=== PATIENT | female | born 1990 | race Caucasian/White ===

== ENCOUNTER 2017-06-07 09:59 | Emergency (ER) | payer SELFPAY ==
[2017-06-07] MEDS ORDERED: ONDANSETRON HCL INJ/PF 4 MG/2 ML SDV IV ONE (10:16)
[2017-06-07] MEDS ORDERED: NORMAL SALINE 1000 ML 1,000 ML IV ONE ×2 (10:16→11:57)
--- NOTE | 2017-06-07 10:18 | ER Document Report ---
ED Medical Screen (RME) - General Chief Complaint: Nausea/Vomiting Stated Complaint: VOMITING Time Seen by Provider: 06/07/17 10:15 Mode of Arrival: Ambulatory Information source: Patient, Friend TRAVEL OUTSIDE OF THE [place] IN LAST 30 DAYS: No - HPI Patient complains to provider of: vomiting Onset: Other - pt recently had a positive HPT with onset of vomiting times 10 starting last pm and continuing into this am - Related Data Allergies/Adverse Reactions: No Known Allergies Allergy (Unverified 06/07/17 10:04) Past Medical History Renal/ Medical History: Denies: Hx Peritoneal Dialysis Physical Exam - Vital signs Vitals: Temp Pulse Resp BP Pulse Ox 98.7 F 106 H 18 120/81 99 06/07/17 10:04 06/07/17 10:04 06/07/17 10:04 06/07/17 10:04 06/07/17 10:04 Course - Vital Signs Vital signs: Temp Pulse Resp BP Pulse Ox 98.7 F 106 H 18 120/81 99 06/07/17 10:04 06/07/17 10:04 06/07/17 10:04 06/07/17 10:04 06/07/17 10:04
[2017-06-07] MEDS ORDERED: FAMOTIDINE 20 MG TABLET PO ONE (10:53)
[2017-06-07 10:55] LABS: ABSOLUTE LYMPHOCYTES (AUTO) 1.5 10^3/uL (0.5-4.7); ABSOLUTE MONOCYTES (AUTO) 0.8 10^3/uL (0.1-1.4); ABSOLUTE NEUT (AUTO) 8.7 10^3/uL (1.7-8.2); BASOPHILS % (AUTO) 0.4 % (0-2); EOSINOPHILS % (AUTO) 0.1 % (0-6); HEMATOCRIT 43.5 % (36.0-47.0); HEMOGLOBIN 14.6 g/dL (12.0-15.5); HGB HCT DIFFERENCE 0.3; LYMPHOCYTES % (AUTO) 13.4 % (13-45); MEAN CORPUSCULAR HEMOGLOBIN 32.1 pg (27.0-33.4); MEAN CORPUSCULAR HGB CONC 33.4 g/dL (32.0-36.0); MEAN CORPUSCULAR VOLUME 96 fl (80-97); RED BLOOD COUNT 4.53 10^6/uL (3.72-5.28); RED CELL DISTRIBUTION WIDTH 12.8 % (11.5-14.0); SEGMENTED NEUTROPHILS % (AUTO) 79.1 % (42-78); WHITE BLOOD COUNT 11.1 10^3/uL (4.0-10.5)
--- NOTE | 2017-06-07 11:00 | ER Document Report ---
ED General - General Chief Complaint: Nausea/Vomiting Stated Complaint: VOMITING Time Seen by Provider: 06/07/17 10:15 Mode of Arrival: Ambulatory TRAVEL OUTSIDE OF THE [place] IN LAST 30 DAYS: No - HPI Notes: Patient is an approx 5week 26yo female with one miscarriage who presents to the ED c/o n/v since last evening. Pt states that she does have a h /o GERD and has not been taking her pepcid. She is scheduled to meet with the health department on Friday. Pt states that she cannot keep any fluids/solids down and has been vomiting about 10 times so far. She is still urinating normally and having normal BM's otherwise. Denies any drug allergies. Denies any other significant PMH. Denies any headache, fever, neck pain, URI, sore throat, chest pain, palpitations, syncope, cough, shortness of breath, wheeze, dyspnea, abdominal pain, diarrhea, pelvic pain/cramping, vaginal discharge/ bleeding/odor, urinary retention, dysuria, hematuria, or rash. - Related Data Allergies/Adverse Reactions: No Known Allergies Allergy (Unverified 06/07/17 10:04) Past Medical History - General Information source: Patient, Friend - Social History Smoking Status: Former Smoker Chew tobacco use (# tins/day): No Frequency of alcohol use: None Drug Abuse: Marijuana Family History: Reviewed & Not Pertinent Renal/ Medical History: Denies: Hx Peritoneal Dialysis GI Medical History: Reports: Hx Gastroesophageal Reflux Disease Review of Systems - Review of Systems Notes: REVIEW OF SYSTEMS: CONSTITUTIONAL : Denies fever, chills, or sweats. Denies recent illness. EENT: Denies eye, ear, throat, or mouth pain or symptoms. Denies nasal or sinus congestion or discharge. Denies throat, tongue, or mouth swelling or difficulty swallowing. CARDIOVASCULAR: Denies chest pain. Denies palpitations or racing or irregular heart beat. Denies ankle edema. RESPIRATORY: Denies cough, cold, or chest congestion. Denies shortness of breath, difficulty breathing, or wheezing. GASTROINTESTINAL: see hpi. Denies abdominal pain or distention. Denies diarrhea. Denies blood in vomitus, stools, or per rectum. Denies black, tarry stools. Denies constipation. GENITOURINARY: Denies difficulty urinating, painful urination, burning, frequency, blood in urine, or discharge. FEMALE GENITOURINARY: Denies vaginal bleeding, heavy or abnormal periods, irregular periods. Denies vaginal discharge or odor. MUSCULOSKELETAL: Denies back or neck pain or stiffness. Denies joint pain or swelling. SKIN: Denies rash, lesions or sores. NEUROLOGICAL: Denies confusion or altered mental status. Denies passing out or loss of consciousness. Denies dizziness or lightheadedness. Denies headache. Denies weakness or paralysis or loss of use of either side. Denies problems with gait or speech. Denies sensory loss, numbness, or tingling. Denies seizures. PSYCHIATRIC: Denies anxiety or stress. Denies depression, suicidal ideation, or homicidal ideation. ALL OTHER SYSTEMS REVIEWED AND NEGATIVE. Dictation was performed using [employer] voice recognition software Physical Exam - Vital signs Vitals: Temp Pulse Resp BP Pulse Ox 98.7 F 106 H 18 120/81 99 06/07/17 10:04 06/07/17 10:04 06/07/17 10:04 06/07/17 10:06/07/17 10:04 Notes: PHYSICAL EXAMINATION: GENERAL: Well-appearing, well-nourished and in no acute distress. HEAD: Atraumatic, normocephalic. EYES: Pupils equal round and reactive to light, extraocular movements intact, sclera anicteric, conjunctiva are normal. ENT: Nares patent and without discharge. oropharynx clear without exudates. No tonsilar hypertrophy or erythema. Moist mucous membranes. No sinus tenderness. NECK: Normal range of motion, supple without lymphadenopathy. No rigidity/ meningismus. LUNGS: Breath sounds clear to auscultation bilaterally and equal. No wheezes rales or rhonchi. HEART: Regular rate and rhythm without murmurs, rubs, gallops. ABDOMEN: Soft, nontender, nondistended abdomen. No guarding, no rebound. No masses appreciated. Normal bowel sounds present. No CVA tenderness bilaterally. No pulsatile mass or rigidity. Extremities: No cyanosis, clubbing, or edema b/l. Peripheral pulses 2+. Capillary refill less than 3 seconds. NEUROLOGICAL: Cranial nerves grossly intact. Normal speech, normal gait. Normal sensory, motor exams PSYCH: Normal mood, normal affect. SKIN: Warm, Dry, normal turgor, no rashes or lesions noted. Course - Re-evaluation Re-evalutation: 06/07/17 12:33 Patient is an afebrile, well-hydrated, 26-year-old female who presents to the ED with nausea/vomiting w/o abd pain & possible UTI. Urine dip showed leuks and 10 WBC's. Pt does not seem to be symptomatic at this time, but I will tentatively cover her with Keflex while awaiting a UC. If the UC is negative then she may d/c the medication. I am covering her due to her being , otherwise, I would wait for the UC prior to starting antibiotics. Pt has not had any pelvic cramping or vaginal symptoms. No other imaging warranted at this time. Low suspicion/risk for acute appendicitis, bowel obstruction, acute cholecystitis, acute cholangitis, perforated diverticulitis, incarcerated hernia , pancreatitis, perforated ulcer, peritonitis, sepsis, pelvic inflammatory disease, ectopic , tubo-ovarian abscess, ovarian torsion, or other systemic emergent condition at this time. Patient is aware that her condition can change from initial presentation and she needs to monitor symptoms closely and seek medical attention if any acute changes. 2L NS given today along with zofran and pepcid. Pt is feeling much better at this time. I will send her home with a Rx for zofran and pepcid (cat. B). Conservative measures otherwise for symptoms. Recheck with OBGYN in 1-2 days (keep consult with health department). Recheck with your PCM in 2-3 days. Return to the ED with any worsening/concerning symptoms otherwise as reviewed in discharge. Patient is in agreement. - Vital Signs Vital signs: Temp Pulse Resp BP Pulse Ox 98.7 F 106 H 18 120/81 99 06/07/17 10:04 06/07/17 10:04 06/07/17 10:04 06/07/17 10:04 06/07/17 10:04 - Laboratory Result Diagrams: 06/07/17 10:30 06/07/17 10:30 Laboratory results interpreted by me: 06/07/17 06/07/17 06/07/17 10:30 10:30 10:30 WBC 11.1 H Seg Neutrophils % 79.1 H Absolute Neutrophils 8.7 H Calcium 10.6 H Total Protein 8.4 H Albumin 5.4 H Urine Protein 30 H Urine Glucose (UA) 50 H Urine Ketones 80 H Ur Leukocyte Esterase MODERATE H Urine Ascorbic Acid 40 H Urine HCG, Qual POSITIVE H Discharge - Discharge Clinical Impression: Nausea & vomiting Qualifiers: Vomiting type: unspecified Vomiting Intractability: non-intractable Qualified Code(s): R11.2 - Nausea with vomiting, unspecified UTI (urinary tract infection) Qualifiers: Urinary tract infection type: site unspecified Hematuria presence: without hematuria Qualified Code(s): N39.0 - Urinary tract infection, site not specified Condition: Stable Disposition: HOME, SELF-CARE Instructions: Antinausea Medication ([facility]), Cephalexin ([facility]), Intravenous (IV) Fluids ([facility]) Additional Instructions: Maintain adequate fluid and food intake Take Zofran and Pepcid as needed Take Keflex as directed and call in 2 days to find out the results of your urine culture. If the urine culture is negative you may stop the antibiotic. Monitor symptoms closely Recheck with your PCM in 2-3 days and keep appointment with the health department on Friday Schedule a consult with the DIRECTOR OF PROMOTIONS if you do not see one at the health department Return to the ED with any worsening symptoms and/or development of fever, headache, neck pain/stiffness, URI, chest pain, palpitations, syncope, shortness of breath, trouble breathing, abdominal pain, worsening n/v, diarrhea , blood in stool/urine, pelvic pain/cramping, vaginal discharge/bleeding/odor, or other worsening symptoms that are concerning to you. Prescriptions: Cephalexin Monohydrate [Keflex 500 mg Capsule] 500 mg PO BID #14 capsule Famotidine [Pepcid 20 mg Tablet] 20 mg PO DAILY #30 tablet Ondansetron [Zofran Odt 4 mg Tablet] 1 - 2 tab PO Q4H PRN #15 tab.rapdis PRN Reason: For Nausea/Vomiting Referrals: [facility] [Provider Group] - Follow up as needed [facility] [Provider Group] - Follow up as needed [facility] [NO LOCAL MD] - 06/09/17 ASHLEE WESTBROOK MD [ACTIVE STAFF] - Follow up as needed
[2017-06-07 11:02] LABS: APPEARANCE,URINE CLOUDY; BILIRUBIN,URINE NEGATIVE (NEGATIVE); GLUCOSE, URINE 50 mg/dL (NEGATIVE); KETONES,URINE 80 mg/dL (NEGATIVE); LEUKOCYTE ESTERASE,URINE MODERATE (NEGATIVE); NITRITE,URINE NEGATIVE (NEGATIVE); PROTEIN,URINE 30 mg/dL (NEGATIVE); URINE SPECIFIC GRAVITY 1.023; UROBILINOGEN,URINE NEGATIVE mg/dL (<2.0)
[2017-06-07 11:12] LABS: ALANINE AMINOTRANSFERASE 26 U/L (9-52); ALBUMIN 5.4 g/dL (3.5-5.0); ALKALINE PHOSPHATASE 67 U/L (38-126); ANION GAP 17 (5-19); ASPARTATE AMINO TRANSFERASE 22 U/L (14-36); BILIRUBIN,DIRECT 0.3 mg/dL (0.0-0.4); BILIRUBIN,TOTAL 0.7 mg/dL (0.2-1.3); BLOOD UREA NITROGEN 10 mg/dL (7-20); CALCIUM 10.6 mg/dL (8.4-10.2); CARBON DIOXIDE 24 mmol/L (22-30); CHLORIDE 98 mmol/L (98-107); GLUCOSE 99 mg/dL (75-110); POTASSIUM 4.3 mmol/L (3.6-5.0); SODIUM 138.6 mmol/L (137-145); TOTAL PROTEIN 8.4 g/dL (6.3-8.2)
[2017-06-07 13:06] VITALS: BP 109/55
== END 2017-06-07 13:00 | disposition home or self-care (01) ==
LOC: ER 09:59
DX: O23.41 Unspecified infection of urinary tract in pregnancy, first trimester (principal); O21.9 Vomiting of pregnancy, unspecified; Z3A.01 Less than 8 weeks gestation of pregnancy
CPT/HCPCS: 99284; 96374; 36415; 87086; 85025; 81025; 80053; 81001; J2405; J7030

== ENCOUNTER → 2017-07-03 | Outpatient (CLI) | payer MEDICAID ==
--- NOTE | 2017-07-03 17:48 | RADIOLOGY REPORT (SQ) ---
EXAM DESCRIPTION: U/S [id number] TRNABD 1GES W/ODOP COMPLETED DATE/TIME: 07/03/2017 5:29 pm REASON FOR STUDY: ENCOUNTER FOR SUPERVISION OF OTHER NORMAL, FIRST TRIMESTER Z34.81 ENCOUNTER FOR S UPRVSN OF NORMAL , FIRST TRIM COMPARISON: None. TECHNIQUE: Transabdominal static and realtime grayscale images acquired of the pelvis. Additional se lected spectral and color Doppler images recorded. All images stored on PACs. bHC,700 LIMITATIONS: None. FINDINGS: FETUS: Living intrauterine . EGA: 9 weeks 2 days LIZZIE: 02/03/2018 FHR: 162 beats per minute. SUBCHORIONIC BLEED: No SIZE OF BLEED: Not applicable. UTERUS: No masses. No anomalies. CERVICAL LENGTH: 3.5 cm Closed. RIGHT ADNEXA: Normal ovary with normal vascular flow. No adnexal free fluid. No adnexal masses. LEFT ADNEXA: Normal ovary with normal vascular flow. No adnexal free fluid. No adnexal masses. FREE FLUID: None. OTHER: No other significant finding. IMPRESSION: LIVING INTRAUTERINE . EGA 9 weeks 2 days Trimester of : First - 0 to 13 weeks. TECHNICAL DOCUMENTATION: JOB ID: [id number]- All Rights Reserved
== END ==
LOC: RAD 16:03
PROVIDERS: ATTEND Nurse Practitioner Women's Health
DX: Z34.81 Encounter for supervision of other normal pregnancy, first trimester (principal)
CPT/HCPCS: 76801

== ENCOUNTER 2018-01-30 17:48 | Inpatient (IN) | payer MEDICAID ==
[2018-01-30 18:26] LABS: APPEARANCE,URINE CLOUDY; BILIRUBIN,URINE NEGATIVE (NEGATIVE); COLOR,URINE YELLOW; GLUCOSE, URINE NEGATIVE (NEGATIVE); KETONES,URINE NEGATIVE (NEGATIVE); LEUKOCYTE ESTERASE,URINE MODERATE (NEGATIVE); NITRITE,URINE NEGATIVE (NEGATIVE); PROTEIN,URINE NEGATIVE (NEGATIVE); URINE SPECIFIC GRAVITY 1.004; UROBILINOGEN,URINE NEGATIVE mg/dL (<2.0)
[2018-01-30 18:32] LABS: AMNISURE (ROM) POSITIVE (NEGATIVE)
[2018-01-30 18:42] LABS: URINE AMPHETAMINES SCREEN NEGATIVE; URINE BARBITURATES SCREEN NEGATIVE; URINE BENZODIAZEPINES SCREEN NEGATIVE; URINE COCAINE SCREEN NEGATIVE; URINE MARIJUANA (THC) SCREEN NEGATIVE; URINE METHADONE SCREEN NEGATIVE; URINE PHENCYCLIDINE SCREEN NEGATIVE
[2018-01-30 19:24] LABS: ABSOLUTE BASOPHILS # (AUTO) 0.1 10^3/uL (0.0-0.2); ABSOLUTE LYMPHOCYTES (AUTO) 2.1 10^3/uL (0.5-4.7); ABSOLUTE MONOCYTES (AUTO) 0.7 10^3/uL (0.1-1.4); ABSOLUTE NEUT (AUTO) 6.4 10^3/uL (1.7-8.2); BASOPHILS % (AUTO) 0.6 % (0-2); EOSINOPHILS % (AUTO) 0.5 % (0-6); HEMATOCRIT 35.2 % (36.0-47.0); HEMOGLOBIN 12.1 g/dL (12.0-15.5); LYMPHOCYTES % (AUTO) 22.8 % (13-45); MEAN CORPUSCULAR HEMOGLOBIN 33.1 pg (27.0-33.4); MEAN CORPUSCULAR HGB CONC 34.3 g/dL (32.0-36.0); MEAN CORPUSCULAR VOLUME 96 fl (80-97); MONOCYTES % (AUTO) 7.5 % (3-13); PLATELET COUNT 210 10^3/uL (150-450); RED BLOOD COUNT 3.66 10^6/uL (3.72-5.28); RED CELL DISTRIBUTION WIDTH 13.4 % (11.5-14.0); SEGMENTED NEUTROPHILS % (AUTO) 68.6 % (42-78); TOTAL CELLS COUNTED % (AUTO) 100 %; WHITE BLOOD COUNT 9.3 10^3/uL (4.0-10.5)
[2018-01-30] MEDS ORDERED: OXYTOCIN/NORMAL SALINE 20 UNIT/1,000 ML RTUINJ IV PRN (19:49)
[2018-01-30] MEDS ORDERED: OXYTOCIN/NORMAL SALINE 20 UNIT/1,000 ML RTUINJ ONE (19:50)
[2018-01-31] MEDS ORDERED: OXYTOCIN/NORMAL SALINE 20 UNIT/1,000 ML RTUINJ ONE (00:01)
[2018-01-31] MEDS ORDERED: LIDOCAINE 1% INJ-PF (10 MG/ML) 30 ML SDV ONE (00:01)
[2018-01-31] MEDS ORDERED: MISOPROSTOL 0.2 MG TABLET ONE (00:01)
[2018-01-31] MEDS ORDERED: EPHEDRINE SULFATE INJ 50 MG/1 ML AMPULE ONE (00:02)
[2018-01-31] MEDS ORDERED: PHENYLEPHRINE HCL INJ/PF 10 MG/1 ML SDV ONE (00:02)
[2018-01-31] MEDS ORDERED: FENTANYL CITRATE INJ/PF 100 MCG/2 ML AMPUL ONE ×2 (00:02→04:15)
[2018-01-31] MEDS ORDERED: BUPIVACAINE HCL 0.25 % INJ/PF (2.5 MG/1 ML) 30 ML VIAL ONE (00:03)
[2018-01-31] MEDS ORDERED: FENTANYL/BUPIVACAINE/NS/PF 300 MCG/150 ML RTUINJ EPI ONE (00:03)
--- NOTE | 2018-01-31 00:28 | Admission Physical ---
Datetime Report Generated by CPN: 01/31/2018 00:27 CURRENT ADMISSION Chief Complaint: Uterine Contractions; Suspected Ruptured Membranes Indication for Induction: PROM Admit Impression : Term, Intrauterine ; No Active Labor; Ruptured Membranes; Induction of Labor Admit Plan: Admit to Unit; Initiate Labor Induction Protocol ALLERGIES Medication Allergies: No Medication Allergies: No Known Allergies (01/30/2018) Latex: No Latex Allergies OBSTETRICAL HISTORY EDC: 01/30/2018 00:00 : 2 Para: 0 Term: 0 : 0 SAB: 1 IAB: 0 Ectopic: 0 Livin Cesareans: 0 VBACs: 0 Multiple Births: 0 Gestational Diabetes: Yes Rh Sensitization: No Incompetent Cervix: No LINDEN: No Infertility: No ART Treatment: No Uterine Anomaly: No IUGR: No Hx Previous C/S: No Macrosomia: No Hx Loss/Stillborn: No PIH: No Hx : No Placenta Previa/Abruption: No Depression/PP Depression: Yes PTL/PROM: No Post Hemorrhage: No Current Procedures: Ultrasound; NST Obstetrical History Comments: G1- Current , GDM, abnormal pap, + HPV, depression and anxiety tx with meds SEE RECORDS Alcohol: Yes Alcohol Frequency: Occasional Advised to Stop: Yes Alcohol Comments: states she drank 1 to 2 glasses of wine weekly throughout . Last ETOH intake 1 week ago secondary to tooth pain Marijuana : Yes Marijuana Frequency: Occasional Previous Treatment: None Cocaine: No Other Illicit Drugs: No Cigarettes: Current Some Day Smoker. [id number] Cigarette Frequency: < 5 per day MEDICAL HISTORY Diabetes: No Diabetes Type: Gestational Diabetes Blood Transfusion: No Pulmonary Disease (Asthma, TB): No Breast Disease: No Hypertension: No Senior Mobile Developer Surgery: No Heart Disease: No Hosp/Surgery: No Autoimmune Disorder: No Anesthetic Complications: No Kidney Disease: No Abnormal Pap Smear: Yes Neuro/Epilepsy: No Psychiatric Disorders: Yes Other Medical Diseases: Yes Hepatitis/Liver Disease: No Significant Family History: No Varicosities/Phlebitis: No Trauma/Violence : No Thyroid Dysfunction: No Medical History Comments: GDM, h/o depression and anxiety currently on meds , GERD dx in High School, multiple dental caries(currently on meds for tooth infection) INFECTIOUS HISTORY Gonorrhea: No Genital Herpes: No Chlamydia: No Tuberculosis: No Syphilis: No Hepatitis: No HIV/AIDS Exposure: No Rash or Viral Illness: No HPV: Yes Infectious 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 PHYSICAL EXAM General: Normal HEENT: Normal Neurologic: Normal Thyroid: Deferred Heart: Normal Lungs: Normal Breast: Deferred Back: Normal Abdomen: Normal Genitourinary Exam: Normal Extremities: Normal DTRs: Normal Pelvic Type: Adequate Vital Signs: Reviewed VAGINAL EXAM Dilatation: 1 Effacement: 50 Station: -3 Contraction Comments: irreg MEMBRANES Membranes: Ruptured Amniotic Fluid Color: Clear FETUS A EGA: 40.0 Monitoring: External US FHR- Baseline: 125 Variability: Moderate 6-25bpm Accelerations: 15X15 Decelerations: None FHR Category: Category I Presentation: Vertex Admit Comment: 27yo at 40+1ega presents for SROM clear fluid at 1430. Cervix 1cm and reviewed need for IOL due to PROM with patient - Cooks catheter placed without difficulty. A1GDM during . Currently on Amox for tooth infection. ASCUS with HR HPV needs repeat pap pp. H/o depression - on Buspar and zoloft. Will need Discharge planning. GBS negative. Pelvis unproven. Anticipate . Reassuring FHR tracing. PLANS FOR LABOR AND DELIVERY Labor and Delivery: Plan Pain Management: Epidural Feeding Preference: Breast Benefit of Breast Feed Discussed: Yes Circumcision: N/A INFORMED CONSENT Informed Consent Obtained: Vaginal Delivery; Induction of Labor; Risks, Benefits and Alternatives Discussed Signature: with User ID: [email or web address]
[2018-01-31] MEDS ORDERED: MEASLES,MUMPS&RUBELLA VACC/PF 0.5 ML VIAL SUBCUT PRN (04:31)
[2018-01-31] MEDS ORDERED: PROMETHAZINE HCL 25 MG SUPP.RECT PR PRN (04:31)
[2018-01-31] MEDS ORDERED: ZOLPIDEM TARTRATE 5 MG TABLET PO PRN (04:31)
[2018-01-31] MEDS ORDERED: ACETAMINOPHEN WITH CODEINE #3 TABLET PO PRN ×2 (04:31)
[2018-01-31] MEDS ORDERED: DIPH/PERTUSS(ACELL)/TETANUS VAC/PF 0.5 ML SYR (>=10YO) IM PRN (04:31)
[2018-01-31] MEDS ORDERED: OXYTOCIN/NORMAL SALINE 20 UNIT/1,000 ML RTUINJ IV PRN (04:31)
[2018-01-31] MEDS ORDERED: MAGNESIUM HYDROXIDE SUSP 30 ML UDCUP PO PRN (04:31)
[2018-01-31] MEDS ORDERED: PSEUDOEPHEDRINE HCL 30 MG TABLET PO PRN (04:31)
[2018-01-31] MEDS ORDERED: DIBUCAINE 1% OINTMENT 28 GM TP PRN (04:31)
[2018-01-31] MEDS ORDERED: NA PHOS,M-B/NA PHOS,DI-BA (ADULT) 133 ML ENEMA PR PRN (04:31)
[2018-01-31] MEDS ORDERED: PROMETHAZINE HCL INJ 25 MG/1 ML VIAL IV PRN (04:31)
[2018-01-31] MEDS ORDERED: GLYCERIN/WITCH HAZEL LEAF 1 EACH MED..PAD TP PRN (04:31)
[2018-01-31] MEDS ORDERED: PROMETHAZINE HCL 25 MG TABLET PO PRN (04:31)
[2018-01-31] MEDS ORDERED: ACETAMINOPHEN 325 MG TABLET PO PRN (04:31)
[2018-01-31] MEDS ORDERED: BENZOCAINE/MENTHOL AEROSOL SPRAY 56 ML TOP PRN (04:31)
[2018-01-31] MEDS ORDERED: DIPHENHYDRAMINE HCL 25 MG CAPSULE PO PRN (04:31)
[2018-01-31] MEDS ORDERED: FENTANYL CITRATE INJ/PF 100 MCG/2 ML AMPUL IV ONE (04:36)
--- NOTE | 2018-01-31 05:27 | Delivery Summary ---
Del Sum A-C Datetime Report Generated by CPN: 01/31/2018 05:27 DELIVERY PERSONNEL DELIVERY PERSONNEL: [id number] Delivery Doctor:: Shelby Rodriguez MD Labor and Delivery Nurse:: Minerva Jacob RN Wing Mailer Machine Operator/CONSERVATION WORKER: Selwyn Ertel, CONSERVATION WORKER MATERNAL INFORMATION Delivery Anesthesia: Epidural Medications After Delivery: Pitocin Bolus-Please Comment Meds After Delivery Comment: pitocin 20 units in 1000 ml NS Estimated Blood Loss (ml): 100 Maternal Complications: Premature Rupture of Membranes Provider Comments: VFI delivered in JENNI presentation. No nuchal cord. Shoulders and body delivered without difficulty. Cord doubly clamped and cut and infant to maternal abdomen. Placenta delivered intact spontaneously. FF at U. Good hemostasis post repair of right labial laceration. Mother and baby stable upon provider leaving the room. LABOR SUMMARY EDC: 01/30/2018 00:00 No. Babies in Womb: 1 Attempted: No Labor Anesthesia: Epidural LABOR INFORMATION Reason for Induction: Premature Rupture of Membranes Reason for Induction- Other: A1GDM Onset of Labor: 01/30/2018 23:47 Complete Dilatation: 01/31/2018 04:06 Oxytocin: Induction Group B Beta Strep: negative Antibiotics # of Doses: 0 Antibiotics Time of Last Dose: n/a Steroids Given: None Reason Steroids Not Administered: Not Applicable MEMBRANES Membranes Rupture Method: Artificial Rupture of Membranes: 01/30/2018 14:30 Length of Rupture (hr): 13.60 Amniotic Fluid Color: Clear Amniotic Fluid Amount: Moderate Amniotic Fluid Odor: Normal STAGES OF LABOR Stage 1 hr: 4 Stage 1 min: 19 Stage 2 hr: 0 Stage 2 min: 0 Stage 3 hr: 0 Stage 3 min: 3 Total Time in Labor hr: 4 Total Time in Labor min: 22 VAGINAL DELIVERY Episiotomy: None Laceration #1: Vaginal Laceration Extension #1: N/A Laceration Repair: Yes Laceration Repair Note: Right labial laceration repaired for hemostasis Sponge Count Correct: Yes Sharps Count Correct: Yes CSECTION DELIVERY Primary Indication: N/A Secondary Indication: N/A CSection Incidence: N/A Labor: N/A Elective: N/A BABY A INFORMATION Infant Delivery Date/Time: 01/31/2018 04:06 Method of Delivery: Vaginal Born in Route : No : N/A Forceps: N/A Vacuum Extraction: N/A Shoulder Dystocia : No PRESENTATION/POSITION BABY A Presentation: Cephalic Cephalic Presentation: Vertex PLACENTA INFORMATION BABY A Placenta Delivery Time : 01/31/2018 04:09 Placenta Method of Delivery: Spontaneous Placenta Status: Delivered SCORES BABY A Heart Rate 1 min: >100 bpm Resp Effort 1 min: Good Cry Reflex Irritability 1 min: Cough or Sneeze or Pulls Away Muscle Tone 1 min: Active Motion Color 1 min: Blue/Pale SCORE 1 MIN: 8 Heart Rate 5 min: >100 bpm Resp Effort 5 min: Good Cry Reflex Irritability 5 min: Cough or Sneeze or Pulls Away Muscle Tone 5 min: Active Motion Color 5 min: Body [place], Extremities Blue SCORE 5 MIN: 9 INFORMATION BABY A Gestational Age at Delivery: 40.1 Gestational Status: Full Term- 39- 40.6 Weeks Infant Outcome : Liveborn Condition : Stable Sex: Female IDENTIFICATION BABY A Infant Verification Date/Time: 01/31/2018 04:11 ID Band Number: [id number] Mother's Name Verified: Yes RN Verifying Infant: Chalman, A. RN Additional Verifying Personnel: Gentilin, T. RN WEIGHT/LENGTH BABY A Birthweight (gm): 3220 Infant Weight (lb): 7 Weight (oz): 2 Infant Length (in): 19.50 Length (cm): 49.53 CORD INFORMATION BABY A No. Cord Vessels: 3 Nuchal Cord : N/A Cord Blood Taken: Yes-For Eval (Mom's Blood Type - or O+) Suction: Mouth; Nose ASSESSMENT BABY A Complications: Multiple Variable Decels Physical Findings at Delivery: Within Normal Limits Infant Respirations: Appears Normal Transferred To: Remains with Mother SIGNATURES Signature: Electronically signed by Shelby Rodriguez MD ([facility]) on 01/31/2018 at 04:39 with User ID: [email or web address]
[2018-01-31] MEDS: IBUPROFEN 800 MG TABLET PO SCH ×3 (06:00→21:13)
[2018-01-31] MEDS: SENNOSIDES/DOCUSATE 8.6-50 MG 1 EACH TABLET PO SCH (09:17)
[2018-01-31] MEDS: SERTRALINE HCL 50 MG TABLET PO SCH (09:17)
[2018-01-31] MEDS: BUSPIRONE HCL 10 MG TABLET PO SCH ×2 (09:17→17:01)
[2018-01-31] MEDS: DOCUSATE SODIUM 100 MG CAPSULE PO SCH ×2 (09:17→17:01)
[2018-01-31] MEDS: FAMOTIDINE 20 MG TABLET PO SCH ×2 (09:17→21:13)
[2018-01-31] MEDS: FERROUS SULFATE 325 MG TABLET PO SCH ×2 (09:18→17:01)
[2018-01-31] MEDS: PRENATAL VITAMIN W DHA CAPSULE PO SCH (09:18)
[2018-01-31] MEDS ORDERED: (PENDING PHARMACY ID) (Sertraline Hcl [Zoloft] 25 MG) PO SCH (10:00)
--- NOTE | 2018-01-31 11:02 | PDOC PROGRESS REPORT ---
Subjective-OB Progress Note for:: 01/31/18 Subjective: Day #0, s/p Denies concerns, states lochia is stable, pain well controlled, voiding with out difficulty. Physical Exam (OB) Vital Signs: Temp Pulse Resp BP Pulse Ox 98.6 F 106 H 17 125/72 96 01/31/18 06:55 01/31/18 06:55 01/31/18 06:55 01/31/18 06:55 01/31/18 06:55 Intake & Output 01/30/18 01/31/18 02/01/18 06:59 06:59 06:59 Intake Total 480 Balance 480 Weight 64.5 kg - Lochia Lochia Amount: Small 10-25 ml Lochia Color: Rubra/Red - Abdomen Description: Tender, Soft, Round Hernia Present: No Fundal Description: Firm, Midline Fundal Height: u/u - u/2 Objective-Diagnostic Laboratory: 01/30/18 19:02 01/30/18 01/30/18 01/30/18 18:06 19:02 19:02 WBC 9.3 RBC 3.66 L Hgb 12.1 Hct 35.2 L MCV 96 MCH 33.1 MCHC 34.3 RDW 13.4 Plt Count 210 Seg Neutrophils % 68.6 Lymphocytes % 22.8 Monocytes % 7.5 Eosinophils % 0.5 Basophils % 0.6 Absolute Neutrophils 6.4 Absolute Lymphocytes 2.1 Absolute Monocytes 0.7 Absolute Eosinophils 0.0 Absolute Basophils 0.1 Urine Color YELLOW Urine Appearance CLOUDY Urine pH 7.0 Ur Specific [place] 1.004 Urine Protein NEGATIVE Urine Glucose (UA) NEGATIVE Urine Ketones NEGATIVE Urine Blood MODERATE H Urine Nitrite NEGATIVE Ur Leukocyte Esterase MODERATE H Blood Type O POSITIVE Antibody Screen NEGATIVE Assessment and Plan(PN) - Assessment and Plan (1) Anxiety Is this a current diagnosis for this admission?: Yes Plan: d/c liaison planner (2) Depression affecting Is this a current diagnosis for this admission?: Yes Plan: 1 w pp f/u (3) Gestational diabetes mellitus (GDM) in childbirth, diet controlled Is this a current diagnosis for this admission?: Yes Plan: yearly follow up (4) Vaginal delivery Is this a current diagnosis for this admission?: Yes Plan: routine pp care - Time Spent with Patient Time with patient: Less than 15 minutes Critical Time spent with patient: Less than 15 minutes Medications reviewed and adjusted accordingly: Yes - Disposition Anticipated Discharge: Home Within: within 24 hours
[2018-02-01] MEDS: IBUPROFEN 800 MG TABLET PO SCH ×3 (06:48→21:13)
[2018-02-01 08:32] LABS: HEMATOCRIT 28.6 % (36.0-47.0); MEAN CORPUSCULAR HEMOGLOBIN 33.8 pg (27.0-33.4); MEAN CORPUSCULAR VOLUME 97 fl (80-97); PLATELET COUNT 150 10^3/uL (150-450); RED BLOOD COUNT 2.96 10^6/uL (3.72-5.28); RED CELL DISTRIBUTION WIDTH 13.7 % (11.5-14.0); WHITE BLOOD COUNT 7.8 10^3/uL (4.0-10.5)
[2018-02-01] MEDS: DOCUSATE SODIUM 100 MG CAPSULE PO SCH ×2 (09:19→17:13)
[2018-02-01] MEDS: BUSPIRONE HCL 10 MG TABLET PO SCH ×2 (09:19→17:13)
[2018-02-01] MEDS: PRENATAL VITAMIN W DHA CAPSULE PO SCH (09:19)
[2018-02-01] MEDS: FERROUS SULFATE 325 MG TABLET PO SCH ×2 (09:19→17:13)
[2018-02-01] MEDS: SENNOSIDES/DOCUSATE 8.6-50 MG 1 EACH TABLET PO SCH (09:19)
[2018-02-01] MEDS: FAMOTIDINE 20 MG TABLET PO SCH ×2 (09:19→21:12)
[2018-02-01] MEDS: SERTRALINE HCL 50 MG TABLET PO SCH (09:20)
--- NOTE | 2018-02-01 10:04 | PDOC PROGRESS REPORT ---
Subjective-OB Progress Note for:: 02/01/18 Subjective: Day #1 s/p Pt doing well, denies concerns, states lochia is stable, pain well controlled, voiding without difficulty. Physical Exam (OB) Vital Signs: Temp Pulse Resp BP Pulse Ox 97.8 F 80 15 117/78 97 02/01/18 08:06 02/01/18 08:06 02/01/18 08:06 02/01/18 08:06 02/01/18 08:06 Intake & Output 01/31/18 02/01/18 02/02/18 06:59 06:59 06:59 Intake Total 480 Balance 480 Weight 64.5 kg - Lochia Lochia Amount: Small 10-25 ml Lochia Color: Rubra/Red - Abdomen Description: Soft, Round Hernia Present: No Fundal Description: Firm, Midline Fundal Height: u/u - u/2 Objective-Diagnostic Laboratory: 02/01/18 08:10 02/01/18 08:10 WBC 7.8 RBC 2.96 L Hgb 10.0 L D Hct 28.6 L MCV 97 MCH 33.8 H MCHC 35.0 RDW 13.7 Plt Count 150 Assessment and Plan(PN) - Assessment and Plan (1) Anxiety Is this a current diagnosis for this admission?: Yes Plan: d/c business planner (2) Depression affecting Is this a current diagnosis for this admission?: Yes Plan: d/c business planner close in office f/u (3) Gestational diabetes mellitus (GDM) in childbirth, diet controlled Is this a current diagnosis for this admission?: Yes Plan: in office follow up (4) Vaginal delivery Is this a current diagnosis for this admission?: Yes Plan: routin postop care - Time Spent with Patient Time with patient: Less than 15 minutes Critical Time spent with patient: Less than 15 minutes Medications reviewed and adjusted accordingly: Yes - Disposition Anticipated Discharge: Home Within: within 24 hours
[2018-02-02] MEDS: IBUPROFEN 800 MG TABLET PO SCH (05:54)
--- NOTE | 2018-02-02 09:17 | PDOC DISCHARGE SUMMARY ---
General - Admit/Disc Date/PCP Admission Date/Primary Care Provider: 01/30/18 18:40 ASHLEE WESTBROOK MD Discharge Date: 02/02/18 - Discharge Diagnosis (1) Gestational diabetes mellitus (GDM) in childbirth, diet controlled Is this a current diagnosis for this admission?: Yes (2) Premature rupture of membranes Is this a current diagnosis for this admission?: Yes (3) Vaginal delivery Is this a current diagnosis for this admission?: Yes - Additional Information Home Medications: Famotidine [Pepcid 20 mg Tablet] 20 mg PO DAILY #30 tablet 06/07/17 Amoxicillin 500 mg PO TID 01/30/18 Buspirone HCl [Buspar 10 mg Tablet] 10 mg PO BID 01/30/18 Danelle Monroe/Linoleic/Gamoleni [Evening [place] 1,000 mg Sftg] 1,000 mg PO TID 01/30/18 No122/Iron/Folic Acid [ Multi Tablet] 1 each PO DAILY 01/30/18 Sertraline HCl [Zoloft] 25 mg PO DAILY 01/30/18 History of Present Illness History of Present Illness: CARINE POP is a 27 year old female Hospital Course Hospital Course: delivered vaginally with uneventful course. Physical Exam - Physical Exam Vital Signs: Temp Pulse Resp BP Pulse Ox 98.2 F 77 16 96/60 L 99 02/02/18 08:14 02/02/18 08:14 02/02/18 08:14 02/02/18 08:14 02/02/18 08:14 Intake & Output 02/01/18 02/02/18 02/03/18 06:59 06:59 06:59 Intake Total 480 480 Balance 480 480 General appearance: PRESENT: no acute distress, cooperative - Obstetrical Exam Fundal Height: u/u - u/2 Tender: No Result Laboratory Results: 02/01/18 08:10 Plan Discharge Plan: discharge home with follow up at [facility] in 4 wks. Time Spent: Less than 30 Minutes
[2018-02-02 09:23] VITALS: BP 125/72
[2018-02-02] MEDS: DOCUSATE SODIUM 100 MG CAPSULE PO SCH (11:08)
[2018-02-02] MEDS: SENNOSIDES/DOCUSATE 8.6-50 MG 1 EACH TABLET PO SCH (11:09)
[2018-02-02] MEDS: BUSPIRONE HCL 10 MG TABLET PO SCH (11:09)
[2018-02-02] MEDS: PRENATAL VITAMIN W DHA CAPSULE PO SCH (11:09)
[2018-02-02] MEDS: FAMOTIDINE 20 MG TABLET PO SCH (11:09)
[2018-02-02] MEDS: FERROUS SULFATE 325 MG TABLET PO SCH (11:10)
[2018-02-02] MEDS: SERTRALINE HCL 50 MG TABLET PO SCH (11:10)
== END 2018-02-02 12:25 | disposition home or self-care (01) | DRG 774 ==
LOC: LC 17:48 → LR 18:40 → 2S 01-31 06:50
PROVIDERS: ADMIT Student in an Organized Health Care Education/Training Program; ATTEND Student in an Organized Health Care Education/Training Program
PROC: 10E0XZZ Delivery of Products of Conception, External Approach (ICD-10-PCS; principal; 2018-01-31)
PROC: 0UQMXZZ Repair Vulva, External Approach (ICD-10-PCS; 2018-01-31)
DX: O24.420 Gestational diabetes mellitus in childbirth, diet controlled (principal); O98.32 Other infections with a predominantly sexual mode of transmission complicating childbirth; F10.980 Alcohol use, unspecified with alcohol-induced anxiety disorder; O99.334 Smoking (tobacco) complicating childbirth; F17.210 Nicotine dependence, cigarettes, uncomplicated; O99.344 Other mental disorders complicating childbirth; F41.8 Other specified anxiety disorders; O70.0 First degree perineal laceration during delivery; O99.314 Alcohol use complicating childbirth; A63.0 Anogenital (venereal) warts; Y90.9 Presence of alcohol in blood, level not specified; O76 Abnormality in fetal heart rate and rhythm complicating labor and delivery; Z3A.40 40 weeks gestation of pregnancy; Z37.0 Single live birth
CPT/HCPCS: 36415; 80307; 81005; 84112; 85025; 85027; 86592; 86850; 86900; 86901; 94760; C1726; J2370; J2590; J3010; J3490